=== PATIENT | female | born 1995 | race African-American/Black ===

== ENCOUNTER 2017-09-13 09:05 | Emergency (ER) | payer OTHER, MEDICAID | END 2017-09-13 14:25 | disposition left against medical advice (07) | LOC: FTE 09:05 | DX: S06.0X0A Concussion without loss of consciousness, initial encounter (principal); S20.219A Contusion of unspecified front wall of thorax, initial encounter; V49.40XA Driver injured in collision with unspecified motor vehicles in traffic accident, initial encounter | CPT/HCPCS: 70450; 71046; 99284-25 ==